=== PATIENT | female | born 1990 | race African-American/Black ===

== ENCOUNTER 2020-03-28 06:10 | Inpatient (IN) | payer MEDICAID ==
[~2020-03-28] VITALS: Ht 157.5 cm; Wt 91.6 kg
[2020-03-28] MEDS ORDERED: PNV11TAB PO (06:32)
[2020-03-28] MEDS ORDERED: BUTORPHANOL TARTRATE 2 MG/ML VIAL IV PRN ×2 (07:15→23:30)
[2020-03-28] MEDS ORDERED: METHYLERGONOVINE MALEATE 0.2 MG/ML IM PRN (07:15)
[2020-03-28] MEDS ORDERED: LIDOCAINE HCL 1% 20ML VIAL (Pyxis) INJ INFIL SCH ×2 (07:15→20:27)
[2020-03-28] MEDS ORDERED: NALOXONE HCL 0.4 MG/ML 1ML VIAL IM PRN (07:15)
[2020-03-28] MEDS ORDERED: CARBOPROST TROMETHAMINE 250 MCG/ML AMPUL IM PRN (07:15)
[2020-03-28] MEDS ORDERED: DEXT 5%/LR + PITOCIN 20UNITS/L 1,000 ML IV SCH (07:15)
[2020-03-28] MEDS ORDERED: AMPICILLIN 2GM in NS 100ML 100 ML IV SCH (08:00)
[2020-03-28 08:46] LABS: BASOPHILS % 0.3 % (0.0-2.0); EOSINOPHILS % 1.1 % (0.0-5.0); HEMATOCRIT. 37.5 % (36.0-48.0); HEMOGLOBIN. 12.6 g/dL (12.0-16.0); LYMPHOCYTES % 25.4 % (20.0-50.0); MEAN CORPUSCULAR HEMOGLOBIN 30.2 pg (28.0-32.0); MEAN CORPUSCULAR VOLUME 90.1 fL (81.0-99.0); MEAN PLATELET VOLUME 9.4 fl (7.4-10.4); MONOCYTES % 8.4 % (2.0-8.0); NEUTROPHILS % 64.8 % (40.0-76.0); PLATELET 211 x1000/uL (130-400); RED BLOOD CELL COUNT 4.16 mill/uL (4.2-5.4); RED CELL DISTRIBUTION WIDTH 14.2 % (11.6-14.6)
[2020-03-28 08:52] LABS: PARTIAL THROMBOPLASTIN TIME 32.2 sec (23.4-31.0); PROTHROMBIN TIME 10.2 sec (9.6-11.0)
[2020-03-28] MEDS ORDERED: LIDOCAINE HCL 2%/EPINEPHRINE 1:100,000 20 ML VIAL INFIL ONE ×2 (09:00→09:15)
[2020-03-28 09:01] LABS: CHLORIDE 109 mEq/L (98-107)
[2020-03-28 09:01] LABS: CLARITY URINE CLEAR (CLEAR); COLOR URINE YELLOW (YELLOW); KETONES URINE 1+ (NEGATIVE); LEUKOCYTE ESTERASE URINE TRACE (NEGATIVE); NITRITE URINE NEGATIVE (NEGATIVE); OCCULT BLOOD URINE NEGATIVE (NEGATIVE); PROTEIN URINE TRACE (NEGATIVE); SPECIFIC GRAVITY URINE 1.016 (1.005-1.030)
[2020-03-28] MEDS ORDERED: ROPIVACAINE HCL/PF EPIDURAL 200 ML EPI SCH (09:15)
[2020-03-28 09:38] LABS: *AMPHETAMINES SCREEN URINE NEGATIVE (NEGATIVE); *BARBITURATES SCREEN URINE NEGATIVE (NEGATIVE)
[2020-03-28 09:39] LABS: *COCAINE SCREEN URINE NEGATIVE (NEGATIVE); CANNABINOID URINE SCREEN NEGATIVE (NEGATIVE); METHADONE URINE SCREEN NEGATIVE (NEGATIVE); OPIATES URINE SCREEN NEGATIVE (NEGATIVE); PHENCYCLIDINE URINE SCREEN NEGATIVE (NEGATIVE)
[2020-03-28 09:43] LABS: *BENZODIAZEPINES SCREEN URINE NEGATIVE (NEGATIVE)
[2020-03-28] MEDS ORDERED: EPHEDRINE SULFATE 50MG/ML VIAL ONE (10:09)
[2020-03-28] MEDS: LACTATED RINGERS 1,000 ML IV SCH ×2 (10:59→20:40)
[2020-03-28 12:18] LABS: HEPATITIS B SURFACE ANTIGEN NEGATIVE
[2020-03-28] MEDS: AMPICILLIN 1,000 MG in SODIUM CHLORIDE 0.9% 50 ML IV SCH ×2 (14:57→21:35)
[2020-03-28] MEDS ORDERED: FENTANYL CITRATE/PF 50MCG/ML 2ML VIAL ONE ×3 (15:55→22:10)
[2020-03-28] MEDS ORDERED: LIDOCAINE HCL/PF 1% 10 MG/ML 5ML VIAL ONE (19:43)
[2020-03-28] MEDS ORDERED: ACETAMINOPHEN 325MG TABLET PO NR (19:45)
[2020-03-28] MEDS ORDERED: GENTAMICIN 120MG PREMIX 100 ML IV NR (20:15)
[2020-03-28] MEDS ORDERED: ACETAMINOPHEN 500MG TABLET PO NR (20:26)
[2020-03-28] MEDS ORDERED: MINERAL OIL 30ML BOTTLE TOP NR (20:27)
[2020-03-28] MEDS ORDERED: ONDANSETRON HCL 4MG/2ML INJ IV PRN (22:00)
[2020-03-28] MEDS ORDERED: ONDANSETRON HCL 4MG/2ML INJ ONE (22:40)
[2020-03-28] MEDS ORDERED: CEFAZOLIN SODIUM 1000MG/VIAL ONE (22:40)
[2020-03-28] MEDS ORDERED: MORPHINE SULFATE/PF 1MG/ML 10ML AMP ONE (22:44)
[2020-03-28] MEDS ORDERED: MIDAZOLAM HCL 2 MG/2 ML VIAL ONE ×2 (22:48→23:32)
[2020-03-28] MEDS ORDERED: DIPHENHYDRAMINE 50MG/ML VIAL ONE (23:21)
[2020-03-28] MEDS ORDERED: KETOROLAC 60MG/2ML VIAL IM ONE (23:21)
[2020-03-28] MEDS ORDERED: DIPHENHYDRAMINE 50MG/ML VIAL IV PRN (23:30)
[2020-03-28] MEDS ORDERED: NALOXONE HCL 0.4 MG/ML 1ML VIAL IV PRN (23:30)
[2020-03-28] MEDS ORDERED: BUPIVACAINE HCL/PF 0.25% (2.5MG/ML) 10ML ONE (23:40)
[2020-03-28] MEDS ORDERED: PROPOFOL 200MG/20ML VIAL IV ONE (23:44)
[2020-03-29] MEDS ORDERED: DEXT 5%/LR + PITOCIN 20UNITS/L 1,000 ML IV SCH (00:15)
[2020-03-29] MEDS ORDERED: ONDANSETRON HCL 4MG/2ML INJ IV PRN (00:15)
[2020-03-29] MEDS ORDERED: HYDROCODONE/ACETAMINOPHEN 5/325MG TABLET PO PRN (00:15)
[2020-03-29] MEDS ORDERED: DIPHENHYDRAMINE 25MG CAPSULE PO PRN (00:15)
[2020-03-29] MEDS ORDERED: RHO(D) IMMUNE GLOBULIN 300 MCG/SYR IM PRN (00:15)
[2020-03-29] MEDS ORDERED: BISACODYL 10MG SUPP PR PRN (00:15)
[2020-03-29 03:50] VITALS: BP 136/91
[2020-03-29] MEDS ORDERED: GENTAMICIN 100MG PREMIX 50 ML IV SCH ×2 (04:30→17:00)
[2020-03-29] MEDS: KETOROLAC 30MG/ML VIAL IV SCH ×2 (04:36→10:46)
[2020-03-29 07:30] VITALS: BP 117/78
[2020-03-29] MEDS: PRENATAL VIT/FE FUMARATE/FA TABLET PO SCH (08:07)
[2020-03-29 11:35] VITALS: BP 118/76
[2020-03-29 15:58] VITALS: BP 115/63
[2020-03-29] MEDS: IBUPROFEN 400MG TABLET PO PRN (17:12)
[2020-03-29] MEDS: DOCUSATE SODIUM 100MG CAPSULE PO SCH (19:44)
[2020-03-29 20:00] VITALS: BP 123/78
[2020-03-30] VITALS: BP 136/89
[2020-03-30] MEDS: HYDROCODONE/ACETAMINOPHEN 5/325MG TABLET PO PRN ×2 (03:44→21:02)
[2020-03-30 04:00] VITALS: BP 144/85
[2020-03-30 08:08] VITALS: BP 122/78
[2020-03-30] MEDS: PRENATAL VIT/FE FUMARATE/FA TABLET PO SCH (09:05)
[2020-03-30 10:17] LABS: BASOPHILS % 0.1 % (0.0-2.0); EOSINOPHILS % 0.2 % (0.0-5.0); HEMATOCRIT. 25.4 % (36.0-48.0); HEMOGLOBIN. 8.5 g/dL (12.0-16.0); LYMPHOCYTES % 11.8 % (20.0-50.0); MEAN CORPUSCULAR HEMOGLOBIN 30.2 pg (28.0-32.0); MEAN CORPUSCULAR VOLUME 90.6 fL (81.0-99.0); MEAN PLATELET VOLUME 8.9 fl (7.4-10.4); MONOCYTES % 4.9 % (2.0-8.0); PLATELET 231 x1000/uL (130-400); RED BLOOD CELL COUNT 2.81 mill/uL (4.2-5.4); RED CELL DISTRIBUTION WIDTH 14.1 % (11.6-14.6)
[2020-03-30] MEDS: AZITHROMYCIN 250 MG TABLET PO SCH (11:04)
[2020-03-30] MEDS: IBUPROFEN 400MG TABLET PO PRN ×2 (12:01→17:58)
[2020-03-30 16:00] VITALS: BP 133/88
[2020-03-30] MEDS: DOCUSATE SODIUM 100MG CAPSULE PO SCH (20:57)
[2020-03-30 22:00] VITALS: BP 132/87
[2020-03-31 05:54] VITALS: BP 142/82
[2020-03-31 07:02] LABS: BASOPHILS % 0.1 % (0.0-2.0); EOSINOPHILS % 0.7 % (0.0-5.0); HEMATOCRIT. 29.2 % (36.0-48.0); HEMOGLOBIN. 9.6 g/dL (12.0-16.0); MEAN CORPUSCULAR HEMOGLOBIN 30.4 pg (28.0-32.0); MEAN CORPUSCULAR VOLUME 92.7 fL (81.0-99.0); MEAN PLATELET VOLUME 9.2 fl (7.4-10.4); MONOCYTES % 5.9 % (2.0-8.0); NEUTROPHILS % 80.3 % (40.0-76.0); PLATELET 222 x1000/uL (130-400); RED BLOOD CELL COUNT 3.15 mill/uL (4.2-5.4); RED CELL DISTRIBUTION WIDTH 14.4 % (11.6-14.6)
[2020-03-31 08:45] VITALS: BP 151/80
[2020-03-31] MEDS: AZITHROMYCIN 250 MG TABLET PO SCH (08:46)
[2020-03-31] MEDS: HYDROCODONE/ACETAMINOPHEN 5/325MG TABLET PO PRN ×3 (08:46→23:47)
[2020-03-31] MEDS: PRENATAL VIT/FE FUMARATE/FA TABLET PO SCH (08:46)
[2020-03-31 10:07] VITALS: BP 141/80
[2020-03-31 15:07] VITALS: BP 128/84
[2020-03-31] MEDS: DOCUSATE SODIUM 100MG CAPSULE PO SCH (21:38)
[2020-03-31 22:00] VITALS: BP 131/93
[2020-04-01] VITALS: BP 142/87
[2020-04-01 05:41] VITALS: BP 139/91
[2020-04-01 07:40] VITALS: BP 127/76
[2020-04-01] MEDS: AZITHROMYCIN 250 MG TABLET PO SCH (08:02)
[2020-04-01] MEDS: PRENATAL VIT/FE FUMARATE/FA TABLET PO SCH (08:03)
[2020-04-01] MEDS: HYDROCODONE/ACETAMINOPHEN 5/325MG TABLET PO PRN (08:03)
[2020-04-01 10:27] LABS: BASOPHILS % 0.4 % (0.0-2.0); EOSINOPHILS % 0.5 % (0.0-5.0); HEMATOCRIT. 22.9 % (36.0-48.0); LYMPHOCYTES % 10.6 % (20.0-50.0); MEAN CORPUSCULAR HEMOGLOBIN 31.5 pg (28.0-32.0); MEAN CORPUSCULAR VOLUME 90.6 fL (81.0-99.0); MEAN PLATELET VOLUME 8.2 fl (7.4-10.4); MONOCYTES % 5.8 % (2.0-8.0); NEUTROPHILS % 82.7 % (40.0-76.0); PLATELET 329 x1000/uL (130-400); RED BLOOD CELL COUNT 2.52 mill/uL (4.2-5.4); RED CELL DISTRIBUTION WIDTH 13.8 % (11.6-14.6)
[2020-04-01] MEDS ORDERED: AMPICILLIN 2,000 MG in SODIUM CHLORIDE 0.9% 100 ML IV ONE (11:00)
[2020-04-01] MEDS: IBUPROFEN 400MG TABLET PO PRN ×2 (11:55→20:34)
[2020-04-01 12:04] VITALS: BP 126/71
[2020-04-01 16:05] VITALS: BP 126/82
[2020-04-01] MEDS ORDERED: AMPICILLIN 1,000 MG in SODIUM CHLORIDE 0.9% 50 ML IV SCH (17:00)
[2020-04-01 20:34] VITALS: BP 126/82
== END 2020-04-01 22:15 | disposition left against medical advice (07) | DRG 540 ==
LOC: OBSVTOIN 06:10 → 8 EST LDRP 06:10 → 8EST 03-29 03:55 → 8 EST LDRP 03-29 22:11
PROVIDERS: ADMIT Specialist; ATTEND Specialist
PROC: 10D00Z1 Extraction of Products of Conception, Low, Open Approach (ICD-10-PCS; principal; 2020-03-29)
DX: O32.4XX0 Maternal care for high head at term, not applicable or unspecified (principal); U07.1 COVID-19; O26.62 Liver and biliary tract disorders in childbirth; O99.892 Other specified diseases and conditions complicating childbirth; K83.1 Obstruction of bile duct; Z53.29 Procedure and treatment not carried out because of patient's decision for other reasons; O98.52 Other viral diseases complicating childbirth; R31.9 Hematuria, unspecified; O77.0 Labor and delivery complicated by meconium in amniotic fluid; Z3A.39 39 weeks gestation of pregnancy; Z37.0 Single live birth; O92.79 Other disorders of lactation
CPT/HCPCS: 36415; 80053; 80170; 80305; 81003; 85025; 86592; 86703; 86762; 86850; 86900; 87340; 87426; 88307; 99281; G0378; J0290; J0690; J1200; J1580; J1885; J2250; J2274; J2310; J2405; J2590; J2704; J3010; J3490; J7050; J7120; Q0163; A4315

== ENCOUNTER 2023-02-20 20:43 | Emergency (ER) | payer MEDICAID ==
[~2023-02-20] VITALS: Ht 157.5 cm; Wt 98.0 kg
[~2023-02-20 20:43] MED LIST: PNV11TAB PO
[2023-02-20 21:08] VITALS: BP 110/83; O2SAT 100
[2023-02-20 21:26] LABS: HCG SCREEN NEGATIVE
[2023-02-20 22:00] LABS: CLARITY URINE TURBID (CLEAR); COLOR URINE YELLOW (YELLOW); GLUCOSE URINE NEGATIVE (NEGATIVE); KETONES URINE NEGATIVE (NEGATIVE); LEUKOCYTE ESTERASE URINE 3+ (NEGATIVE); NITRITE URINE NEGATIVE (NEGATIVE); OCCULT BLOOD URINE 3+ (NEGATIVE); PH URINE 6.5 (4.5-8.0); PROTEIN URINE 1+ (NEGATIVE); SPECIFIC GRAVITY URINE 1.006 (1.005-1.030); UROBILINOGEN URINE 0.2 E.U./dL (0.2-1.0)
[2023-02-20] MEDS ORDERED: NITR100C MT (22:10)
[2023-02-20 22:16] LABS: BACTERIA URINE 1+; SQUAMOUS EPITHELIAL CELL URINE 1+ /lpf (RARE/1+)
[2023-02-20 22:17] LABS: WBC URINE TNTC /hpf (0-2)
[2023-02-20 22:55] VITALS: PULSE 100; RESP 16; TEMP 98.8
== END 2023-02-20 23:15 | disposition home or self-care (01) ==
LOC: ER 20:43
DX: N39.0 Urinary tract infection, site not specified (principal)
CPT/HCPCS: 81003; 81025; 84703; 99283